=== PATIENT | male | born 1970 | race Caucasian/White ===

== ENCOUNTER 2021-02-01 06:36 | Observation (INO) | payer OTHER ==
[~2021-02-01] VITALS: Ht 177.8 cm; Wt 109.8 kg
[~2021-02-01 06:36] MED LIST: ADVAIR 250-501 EACH INH; COZAAR100 MG PO; ECOTRIN325 MG PO; GLUCOPHAGE500 MG PO; HYDRALAZINE HCL25 MG PO; INDOCIN 50 MG C50 MG PO; LASIX20 MG PO; LIPITOR TAB 2020 MG PO; NITROSTAT0.4 MG SL; NORVASC10 MG PO; PRINIVIL20 MG PO; PROTONIX40 MG PO; TOPROL XL50 MG PO; TRICOR 145 MG145 MG PO; VALIUM 10 MG TA10 MG PO; VENTOLIN HFA 66.7 GM INH; VENTOLIN/PROVE0.5 ML INH; VITAMIN D250000 UNIT PO
[2021-02-01 07:04] LABS: HEMOGLOBIN 13.5 gm/dl (14.0-17.5); RED BLOOD COUNT 4.42 M/UL (4.20-5.50); WHITE BLOOD COUNT 10.2 K/UL (4.5-11.0)
[2021-02-01 07:27] LABS: BUN/CREATININE RATIO 12 (0-10)
[2021-02-01] MEDS ORDERED: SYMBICORT 16010.2 GM INH (10:09)
[2021-02-01] MEDS ORDERED: FLOMAX 0.4 MG0.4 MG PO (10:09)
[2021-02-01] MEDS ORDERED: GABAPENTIN800 MG PO (10:10)
[2021-02-01] MEDS ORDERED: CLARITIN 10MG T10 MG PO (10:11)
[2021-02-01] MEDS ORDERED: FENOFIBRATE145 MG PO (10:12)
[2021-02-01] MEDS ORDERED: INDOCIN CAP 2525 MG PO (10:14)
[2021-02-01] MEDS ORDERED: JANUVIA100 MG PO (10:15)
[2021-02-01] MEDS ORDERED: ZESTRIL 40 MG T40 MG PO (10:22)
[2021-02-01] MEDS ORDERED: HUMALOG100 UNIT/3 SQ (10:33)
[2021-02-02 04:04] LABS: HEMOGLOBIN 12.9 gm/dl (14.0-17.5); RED BLOOD COUNT 4.33 M/UL (4.20-5.50); WHITE BLOOD COUNT 6.5 K/UL (4.5-11.0)
[2021-02-02] MEDS ORDERED: ISORDIL TAB 2020 MG PO (07:56)
[2021-02-02] MEDS ORDERED: CLOPIDOGREL75 MG PO (15:05)
[2021-02-02] MEDS ORDERED: LIPITOR TAB 2020 MG PO (15:05)
[2021-02-02] MEDS ORDERED: ASPIRIN EC81 MG PO (15:05)
== END 2021-02-02 16:49 | disposition home or self-care (01) ==
LOC: ER1 06:36 → MED SURG 4 08:19 → CDU 08:19 → MED SURG 4 10:48
PROVIDERS: Emergency Medicine; Physician Assistant Medical; ADMIT Internal Medicine
DX: I25.110 Atherosclerotic heart disease of native coronary artery with unstable angina pectoris (principal); N17.9 Acute kidney failure, unspecified; E11.9 Type 2 diabetes mellitus without complications; I10 Essential (primary) hypertension; E78.5 Hyperlipidemia, unspecified; J44.9 Chronic obstructive pulmonary disease, unspecified; Z79.4 Long term (current) use of insulin; Z79.82 Long term (current) use of aspirin; Z79.52 Long term (current) use of systemic steroids; Z79.899 Other long term (current) drug therapy; Z20.822 Contact with and (suspected) exposure to COVID-19; Z95.1 Presence of aortocoronary bypass graft; Z90.49 Acquired absence of other specified parts of digestive tract; Z87.442 Personal history of urinary calculi; Z86.19 Personal history of other infectious and parasitic diseases
CPT/HCPCS: ECHO; 36415; 71045; 78452; 80048; 80053; 82550; 82553; 82962; 83735; 83874; 84484; 85025; 85027; 93005; 93017; 93306; 99285; A9502; G0378; J2785; J7030; U0002